=== PATIENT | female | born 1945 | race Caucasian/White ===

== ENCOUNTER 2016-10-10 21:49 | Inpatient (IN) | payer MEDICARE, OTHER ==
[~2016-10-10] VITALS: Ht 157.5 cm; Wt 72.6 kg
--- NOTE | 2016-10-10 20:20 | NUR ---
ACCEPTED A TRANSFER FEMALE PATIENT FROM [facility] TO ROOM 104 WITH DIAGNOSIS OF BRAIN DYSFUNCTION, ALTERED MENTAL LEVEL OF CONSCIOUSNESS, ENCEPHALOPATHY, ADMITTED TO ARU FOR INCREASING STRENGTH IN MOBILITY AND IMPROVED INDEPENDENCE IN ADLS. DAUGHTER AT BEDSIDE, TO ASSIST WITH INTERPRETING. PATIENT IS SPEAKING ONLY BRAZILIAN AND HAS NO UNDERSTANDING OF MAORI. PICTURES TAKEN OF SKIN ISSUES AT SACRUM AND LEFT ANTECUBITAL SITE WHERE AN IV WAS D/C'D TODAY AT [facility]. SACRUM CLEANED WELL. FOLLOWED BY HYDROGEL AND MEPILEX COVER.KEPT OFF BACK MUCH POSSIBLE. PATIENT IS CONFUSED AND ORIENTED TO NAME ONLY DAUGHTER STATES SHE DOESN'T NOT KNOW OR EVEN UNDERSTAND DIRECTIONS TO USING THE CALL LIGHT SYSTEM. DAUGHTER WILL BE STAYING OVER NIGHT TO HELP WITH INTERPRETATION AND SAFETY OF PATIENT. ORIENTED TO ARU ROUTINE,TV,PLAN OF CARE,AND MEDS TO BE GIVEN. CALL LIGHT WITHIN REACH AT ALL TIMES, PATIENT CARE ROUNDING TO BE DONE Q 1 HOUR AND PRN TO MAINTAIN SAFETY AND COMFORT
[2016-10-10] MEDS ORDERED: MAGNESIUM HYDROXIDE 30 ML LIQUID UDC PO PRN (23:15)
[2016-10-10] MEDS ORDERED: ACETAMINOPHEN 325 MG TABLET PO PRN (23:15)
[2016-10-10] MEDS ORDERED: MAG HYDROX/AL HYDROX/SIMETH 30 ML LIQUID UDC PO PRN (23:15)
[2016-10-10] MEDS ORDERED: Z GUARD REMEDY PASTE 57 GM TUBE TOP PRN (23:15)
[2016-10-11 00:05] VITALS: BP 134/65
--- NOTE | 2016-10-11 06:00 | NUR ---
SLEPT WELL TONIGHT. NO BEHAVIORAL ISSUES NOTED WITH DAUGHTER STAYING OVERNIGHT WITH PATIENT IN HELPING WITH INTERPRETATION.SKIN KEPT CLEAN AND DRY THROUGHPUT THE SHIFT.IN NAD OR C/O PAIN THIS SHIFT. REMAINS GUARDED WITH ALL TASKS TO BE DONE. REQUIRES THOROUGH EXPLAINATIONS PRIOR TO DOING ANY TASKS FOR HER TO BE LESS ANXIOUS, GUARDED, AND TO BE COMPLIANT.FREE FROM INJURY TONIGHT. MAINTAINED COMFORT. ALL NEEDS ADDRESSED AND MET. CALL LIGHT WITHIN REACH.
[2016-10-11] MEDS: PANTOPRAZOLE SODIUM 40 MG TABLET.DR PO SCH ×2 (07:00→07:19)
[2016-10-11] MEDS ORDERED: PANTOPRAZOLE SODIUM 40 MG TABLET.DR PO ONE (07:02)
[2016-10-11 08:00] VITALS: BP 121/55
[2016-10-11] MEDS ORDERED: ESCI20TA PO (09:29)
[2016-10-11] MEDS ORDERED: QUET25TA PO (09:31)
[2016-10-11] MEDS ORDERED: GEL100GE MC (09:37)
[2016-10-11] MEDS: ACETAMINOPHEN 325 MG TABLET PO PRN (11:05)
--- NOTE | 2016-10-11 12:37 | NUR ---
City Engineer: PAULETTE met with patient and pt's daughter at bedside to asses needs and provide support. Pt is only Arabic speaking. however pt's daughter provided collateral. Per daughter, the pt has a assisted living home director at home and a strong support system. PAULETTE was informed by RNPancho this morning that family requested POLST. PAULETTE followed up with pt's daughter who reported the pt has a completed POLST at home, and the hospital will be provided with it today. Per daughter, she has no concerns or needs at this time. She reported the pt will need HH upon discharge, PAULETTE will refer to [facility].
--- NOTE | 2016-10-11 19:40 | NUR ---
Received to care, patient resting in bed comfortably with her daughter at bedside. Patient is able to communicate needs. No pain or discomfort when asked. No signs of distress noted. Respirations unlabored. Call light within reach. Bed in lowest position with 2/4 siderails up for safety. Will continue to monitor
--- NOTE | 2016-10-11 20:06 | NUR ---
Some redness noted at left AC IV site post DC of her IV. Ice pack applied.Will follow up. No complaints of pain or discomfort. will continue to monitor
--- NOTE | 2016-10-11 20:30 | NUR ---
Both daughters in facility and at patient's bedside. Verbalized their concerns about patient being too far away from the nurses station because of patients confusion, not being able to speak any Bulgarian and not understanding how to use the call light as needed. Explained to the daughters that I have informed our casting house laborer regarding situation. Informed them that we have discharges coming up and once a room frees up by the nurses station on the south side we will be able to move their mother to another room. They both verbalized understanding. All needs attended to promptly. Call light within reach. Will continue to monitor.
[2016-10-11 20:45] VITALS: BP 106/52
[2016-10-11] MEDS: QUETIAPINE FUMARATE 25 MG TABLET PO SCH ×2 (21:00→21:31)
--- NOTE | 2016-10-11 21:35 | NUR ---
Scheduled dose of Seroquel 25mg refused. Patients daughters also state that she is not to take Seroquel per patients Primary Doctors instruction. (Dr. Spivey). Patients daughters name is Marielle ([phone]). Will continue to monitor
--- NOTE | 2016-10-11 23:20 | NUR ---
Patient's daughter in facility and verbalized that she wanted to stay the night and that she had stayed the night previously because her mom does not understand and speak Yoruba. Explained to daughter that she must sign the hospital visitor extended stay agreement form. Verbalized understanding and signed form. Informed Rotor Coil Taper, Brie of daughters stay. Per Brie will needed MD order as well. Will inform MD and get order. All needs attended to promptly. Call light within reach. Will continue to monitor.
[2016-10-12 06:45] LABS: BASOPHILS % (AUTO) 0.5 % (0.0-2.0); EOSINOPHILS # (AUTO) 0.1 K/uL (0.0-0.7); HEMATOCRIT 30.9 % (37-47); HEMOGLOBIN 10.1 G/DL (12.0-16.0); LYMPHOCYTES # (AUTO) 1.7 K/UL (0.8-4.8); LYMPHOCYTES % (AUTO) 26.4 % (20.5-51.5); MEAN CORPUSCULAR HEMOGLOBIN 25.8 UUG (27.0-31.0); MEAN CORPUSCULAR HGB CONC 33 g/dL (32.0-37.0); MEAN CORPUSCULAR VOLUME 79.1 FL (81.0-99.0); MONOCYTES # (AUTO) 0.5 K/UL (0.1-1.30); MONOCYTES % (AUTO) 7.5 % (0.0-11.0); NEUTROPHILS # (AUTO) 4.2 K/UL (1.8-8.9); NEUTROPHILS % (AUTO) 63.6 % (38.5-71.5); PLATELET COUNT (AUTO) 274 K/UL (150-450); WHITE BLOOD COUNT (AUTO) 6.6 K/UL (4.0-11.2)
--- NOTE | 2016-10-12 06:49 | NUR ---
Dr. Angeles made aware of daughter wanting to spend the night. Received orders for daughter to spend the night. New orders noted and carried out.
[2016-10-12] MEDS: PANTOPRAZOLE SODIUM 40 MG TABLET.DR PO SCH (07:00)
[2016-10-12 07:19] LABS: THYROID STIMULATING HORMONE 1.258 mIU/mL (0.358-3.740)
[2016-10-12 07:40] LABS: BILIRUBIN,TOTAL 0.3 mg/dL (0.2-1.0); CREATININE 0.7 mg/dL (0.6-1.3); MAGNESIUM 1.7 mg/dL (1.8-2.4); PHOSPHOROUS 4.1 mg/dL (2.5-4.9); POTASSIUM 3.5 mmol/L (3.5-5.1); TOTAL PROTEIN, SERUM 6.5 g/dL (6.4-8.2)
[2016-10-12 08:00] VITALS: BP 129/61
[2016-10-12] MEDS: ESCITALOPRAM OXALATE 10 MG TABLET PO SCH (09:00)
[2016-10-12] MEDS ORDERED: Medication Not On Formulary EA (Escitalopram Oxalate (Lexapro) 1 TAB) PO SCH (09:00)
[2016-10-12] MEDS ORDERED: MAGNESIUM SULFATE/D5W 100 ML IV SCH (15:15)
--- NOTE | 2016-10-12 18:22 | NUR ---
DAILY NURSING NOTE ENCOURAGE PT AND DAUGHTER AT BEDSIDE TO INCREASE FLUIDS. DRANK 200ML THIS SHIFT AND NO BM FOR 2 DAYS. NEEDS MORE ENCOURAGEMENT
[2016-10-12 20:31] VITALS: BP 100/59
[2016-10-12] MEDS: QUETIAPINE FUMARATE 25 MG TABLET PO SCH (20:36)
[2016-10-13] MEDS: PANTOPRAZOLE SODIUM 40 MG TABLET.DR PO SCH (07:00)
--- NOTE | 2016-10-13 07:32 | NUR ---
Protonix not given. Patient refused
[2016-10-13 08:00] VITALS: BP 103/62
[2016-10-13] MEDS: ESCITALOPRAM OXALATE 10 MG TABLET PO SCH (09:00)
[2016-10-13] MEDS: ACETAMINOPHEN 325 MG TABLET PO PRN ×2 (10:56→20:22)
--- NOTE | 2016-10-13 20:27 | NUR ---
PRN Tylenol given for pain. will continue to monitor
[2016-10-13 20:36] VITALS: BP 138/73
[2016-10-13] MEDS: QUETIAPINE FUMARATE 25 MG TABLET PO SCH (21:00)
[2016-10-14] MEDS: PANTOPRAZOLE SODIUM 40 MG TABLET.DR PO SCH (06:37)
--- NOTE | 2016-10-14 06:39 | NUR ---
Patient refused Protonix
--- NOTE | 2016-10-14 08:00 | NUR ---
Received patient awake, up in wheelchair, verbally responsive, not in any form of acute distress. She denies any pain or discomfort at this time. Daughter Nya at bedside. Environmental check for safety done. Call light placed within reach.
[2016-10-14] MEDS: ESCITALOPRAM OXALATE 10 MG TABLET PO SCH (09:00)
--- NOTE | 2016-10-14 09:00 | NUR ---
Lexapro not at ministered, daughter at bedside refused. Explained risk and benefits to daughter and patient but daughter still refused.
[2016-10-14] MEDS: ACETAMINOPHEN 325 MG TABLET PO PRN (14:05)
[2016-10-14] MEDS: QUETIAPINE FUMARATE 25 MG TABLET PO SCH (20:49)
--- NOTE | 2016-10-14 20:50 | NUR ---
Patient refused Seroquel. Will continue to monitor
[2016-10-14 20:54] VITALS: BP 115/63
[2016-10-15] MEDS: PANTOPRAZOLE SODIUM 40 MG TABLET.DR PO SCH (07:00)
[2016-10-15] MEDS: ACETAMINOPHEN 325 MG TABLET PO PRN (07:39)
[2016-10-15] MEDS: ESCITALOPRAM OXALATE 10 MG TABLET PO SCH (07:40)
[2016-10-15] MEDS: QUETIAPINE FUMARATE 25 MG TABLET PO SCH (07:41)
--- NOTE | 2016-10-15 09:30 | NUR ---
Discussed code status clarification with Daughter states that pt does not want any intubation and ok with CPR notified Dr Vila - new order for code status for DNI. Dr Vila saw -daughter c/o pt very sleepy pt new orders received to dc meds that pt has been refusing lexapro, seroquel, and protonix.
--- NOTE | 2016-10-15 19:30 | NUR ---
RECEIVED PATIENT AWAKE, ALERT AND ORIENTED X1 TO NAME ONLY. REORIENTED WITH HELP OF DAUGHTER FOR INTERPRETATION. IN NAD AT PRESENT. NO C/O H/A OR OTHER PAINS. INCONTINENT OF URINE IN DIAPERS. KEPT CLEAN AND DRY.MEPILEX INTACT TO SACRUM, CLEAN AND DR.CALL LIGHT WITHIN REACH AND BED ALARM ON AAT. DAUGHTER WILL BE STAYING OVERNIGHT TONIGHT.CRUSH MEDS AND GIVE IN APPLE SAUCE.
[2016-10-15 20:10] VITALS: BP 136/70
[2016-10-15] MEDS: MAGNESIUM OXIDE 400 MG TABLET PO SCH (20:34)
[2016-10-16 08:00] VITALS: BP 128/74
[2016-10-16] MEDS: CHOLECALCIFEROL 1,000 UNIT TABLET PO SCH (08:32)
[2016-10-16] MEDS: FERROUS SULFATE 325 MG TABEC PO SCH (08:32)
[2016-10-16] MEDS: ACETAMINOPHEN 325 MG TABLET PO PRN (08:58)
--- NOTE | 2016-10-16 09:05 | NUR ---
PATIENT COMPLAINED OF PAIN VERBALIZED BY DAUGHTER. PRN PAIN MEDICATIONS GIVEN. SHADI-CARE AND AM CARE DONE. TOLERATED BREAKFAST WELL.
--- NOTE | 2016-10-16 10:00 | NUR ---
PATIENT TOLERATED DIET WELL. OFFERED PATIENT TO BE TRANSFERRED PRIVATE ROOM BUT REFUSED. PATIENT IS CONFUSED BUT MAKES NEEDS KNOWN TO DAUGHTER. NO S/S OF DISTRESS. ENSURED SAFETY
--- NOTE | 2016-10-16 13:03 | NUR ---
RECEIVED PATIENT ASLEEP IN BED. WITH DAUGHTER AT BEDSIDE. NO S/S OF DISTRESS. CALL LIGHT WITHIN REACH.
--- NOTE | 2016-10-16 14:26 | NUR ---
WOUND CARE CONSULT: PT PRESENTS WITH STAGE II ULCER TO SACRAL AREA, PRESENT ON ADMISSION. PT IS INCONTINENT. FIRST STEP MATTRESS TO BE PLACED. PT TO BE TURNED AND REPOSITIONED EVERY 2 HRS PT CONDITION PERMITS, HEELS FLOATED. SKIN TO BE KEPT CLEAN AND DRY. ALL SKIN PROTECTION AND WOUND RECOMMENDATIONS DISCUSSED WITH NURSING STAFF. WILL SEE PRN. WILLIAMSON IN AGREEMENT WITH PLAN OF CARE. Addendum: 10/16/16 at 1428 by LES LUNDY RN Amended: Links added.
--- NOTE | 2016-10-16 15:20 | NUR ---
PATIENT LETHARGIC, DOES NOT OBEY COMMANDS. V/S FOLLOWS: T- 99.1, KY-104, SPO2-97, BP-116/64, RR- 20. INFORMED DR. SEWELL. PLAIN HEAD CT SCAN ORDERED. INFORMED CRISTINA TIRADO. CBC, BMP AND CHEST XRAY ORDERED.
[2016-10-16 15:32] VITALS: BP 116/64
[2016-10-16 16:24] LABS: BASOPHILS # (AUTO) 0.1 K/uL (0.0-8.0); EOSINOPHILS # (AUTO) 0.1 K/uL (0.0-0.7); EOSINOPHILS % (AUTO) 1.1 % (0.0-7.0); HEMATOCRIT 37.2 % (37-47); HEMOGLOBIN 12.1 G/DL (12.0-16.0); LYMPHOCYTES # (AUTO) 2.3 K/UL (0.8-4.8); MEAN CORPUSCULAR HEMOGLOBIN 25.6 UUG (27.0-31.0); MEAN CORPUSCULAR HGB CONC 33 g/dL (32.0-37.0); MEAN CORPUSCULAR VOLUME 78.6 FL (81.0-99.0); MONOCYTES # (AUTO) 0.9 K/UL (0.1-1.30); MONOCYTES % (AUTO) 11.3 % (0.0-11.0); NEUTROPHILS # (AUTO) 4.4 K/UL (1.8-8.9); NEUTROPHILS % (AUTO) 57.6 % (38.5-71.5); PLATELET COUNT (AUTO) 413 K/UL (150-450); RED BLOOD CELL COUNT(AUTO) 4.74 MIL/UL (4.2-5.4); WHITE BLOOD COUNT (AUTO) 7.8 K/UL (4.0-11.2)
[2016-10-16 16:34] LABS: CREATININE 0.7 mg/dL (0.6-1.3)
--- NOTE | 2016-10-16 17:26 | NUR ---
Patient noted with lethargy. Patient was seen by ACID PURIFIER. ACID PURIFIER with new orders and was carried out by assigned RN - Gabriele. Neuro MD was informed by RN. Offered room change so patient can be closer to Nurse's station for better close monitoring, explained benefits of being closer to Nurse's station with Director-Karina to patient's 2 daughters John and Marielle but both daughters insisted of staying in the current room due to larger space.
--- NOTE | 2016-10-16 19:30 | NUR ---
Report received from [facility].
[2016-10-16 20:00] VITALS: BP 106/55
[2016-10-16] MEDS: MAGNESIUM OXIDE 400 MG TABLET PO SCH (21:55)
--- NOTE | 2016-10-16 22:00 | NUR ---
Seen patient and performed head to toe assessment. Due meds given. Turned and repositioned, continue on skin care protocol, applied z-guard at sacral area,Applied 1st step mattress, did straight cath using aseptic technique, send urine for culture and urinalysis.Meds crushed pill w/ apple sauce.Denies any pain as interpreted by pt's daughter.Pt remained alert but sleeps a lot however easily arousable.
[2016-10-16 22:44] LABS: *BILIRUBIN,URIN NEGATIVE (NEGATIVE); *BLOOD, URINE Trace-intact (NEGATIVE); *CLARITY,URINE CLOUDY (CLEAR); *COLOR,URINE CLOUDY (YELLOW); *KETONES,URINE NEGATIVE (NEGATIVE); *PROTEIN,URINE TRACE (NEGATIVE); *UROBILINOGEN,URINE 0.2 E.U./dl (NORMAL); LEUKOCYTE ESTERASE ,URINE 3+ (NEGATIVE); PH,URINE 6.5 (5.0-8.0); UGLUCOSE NEGATIVE (NEGATIVE)
[2016-10-16 22:50] LABS: NITRITE, URINE POSITIVE (NEGATIVE)
[2016-10-16 22:53] LABS: BACTERIA,URINE MANY /HPF (NONE SEEN); RBC,URINE 0-3 /HPF (0-3); SQUAMOUS EPITHELIAL CELL,UR FEW /HPF (NONE SEEN); WBC,URINE TNTC /HPF (0-3)
--- NOTE | 2016-10-17 07:30 | NUR ---
Report to [facility]. bedbath rendered earlier, changed diaper, made it comfortable. Left AC took a picture , less reddened.No significant distress noted.
[2016-10-17 08:00] VITALS: BP 100/57
--- NOTE | 2016-10-17 08:00 | NUR ---
RECEIVED PATIENT ASLEEP IN BED. WITH DAUGHTER AT BEDSIDE. CALL LIGHT WITHIN REACH NO S/S OF DISTRESS. WILL CONTINUE TO MONITOR.
[2016-10-17] MEDS: CHOLECALCIFEROL 1,000 UNIT TABLET PO SCH (08:50)
[2016-10-17] MEDS: FERROUS SULFATE 325 MG TABEC PO SCH (08:50)
--- NOTE | 2016-10-17 09:30 | NUR ---
PATIENT URINALYSIS RESULT OF WBC-TNTC, NITRATE- POSITIVE, LEUKOCYTE-3+, BACTERIA-MANY REPORTED TO CHRISTOPHER/DRAMATIC ART TEACHER. DRAMATIC ART TEACHER WILL CHECK RESULTS AND GET BACK TO US FOR ANTIBIOTICS VERBALIZED.
[2016-10-17] MEDS: ACETAMINOPHEN 325 MG TABLET PO PRN (11:35)
--- NOTE | 2016-10-17 13:00 | NUR ---
IV G 22 STARTED OVER LEFT WRIST FOR ANTIBIOTIC INFUSION.
[2016-10-17] MEDS: CEFTRIAXONE 1 G in IV DEXTROSE 5% 50 ML IV SCH (14:18)
--- NOTE | 2016-10-17 15:15 | NUR ---
IDT MEETING 10/17/16
[2016-10-17 15:36] LABS: BASOPHILS % (AUTO) 0.5 % (0.0-2.0); EOSINOPHILS # (AUTO) 0.1 K/uL (0.0-0.7); EOSINOPHILS % (AUTO) 1.5 % (0.0-7.0); HEMATOCRIT 35.7 % (37-47); HEMOGLOBIN 11.6 G/DL (12.0-16.0); LYMPHOCYTES # (AUTO) 2.3 K/UL (0.8-4.8); LYMPHOCYTES % (AUTO) 27.8 % (20.5-51.5); MEAN CORPUSCULAR HEMOGLOBIN 25.5 UUG (27.0-31.0); MEAN CORPUSCULAR HGB CONC 32 g/dL (32.0-37.0); MEAN CORPUSCULAR VOLUME 78.8 FL (81.0-99.0); MONOCYTES # (AUTO) 0.7 K/UL (0.1-1.30); MONOCYTES % (AUTO) 8.3 % (0.0-11.0); NEUTROPHILS # (AUTO) 5.2 K/UL (1.8-8.9); NEUTROPHILS % (AUTO) 61.9 % (38.5-71.5); PLATELET COUNT (AUTO) 391 K/UL (150-450); RED BLOOD CELL COUNT(AUTO) 4.53 MIL/UL (4.2-5.4); WHITE BLOOD COUNT (AUTO) 8.3 K/UL (4.0-11.2)
[2016-10-17 15:39] LABS: CREATININE 0.9 mg/dL (0.6-1.3); POTASSIUM 4.2 mmol/L (3.5-5.1)
--- NOTE | 2016-10-17 19:30 | NUR ---
RECEIVED PATIENT SLEEPING LIGHTLY IN NAD. IV SALINE LOCK LEFT HAND PATENT AND WITHOUT SIGNS OF INFILTRATION OR PHLEBITIS.NO C/O HEADACHE AT THIS TIME. PM CARE DONE AND REPOSITIONED COMFORTABLY FOR SLEEP.DAUGHTER AT BEDSIDE FOR THE NIGHT.CALL LIGHT WITHIN REACH AAT
[2016-10-17 19:54] VITALS: BP 112/61
[2016-10-17] MEDS: MAGNESIUM OXIDE 400 MG TABLET PO SCH (21:20)
[2016-10-18 08:00] VITALS: BP 103/49
[2016-10-18] MEDS: FERROUS SULFATE 325 MG TABEC PO SCH (10:41)
[2016-10-18] MEDS: CHOLECALCIFEROL 1,000 UNIT TABLET PO SCH (10:41)
[2016-10-18] MEDS: CEFTRIAXONE 1 G in IV DEXTROSE 5% 50 ML IV SCH (15:05)
[2016-10-18 20:32] VITALS: BP 110/62
[2016-10-18] MEDS: MAGNESIUM OXIDE 400 MG TABLET PO SCH (20:44)
[2016-10-19 08:00] VITALS: BP 98/53
[2016-10-19] MEDS: CHOLECALCIFEROL 1,000 UNIT TABLET PO SCH (09:44)
[2016-10-19] MEDS: FERROUS SULFATE 325 MG TABEC PO SCH (09:44)
--- NOTE | 2016-10-19 13:00 | NUR ---
Patient lying on the bed. spoke with the daughter, daughter wants the antibiotics IV med to be reschedule at the later time. daughter stated she wants the patient to sleep at this moment and putting an IV medication will make her agitated. Health teaching done. daughter still want to hold the abx administration for 1330 at the later time. HAND STONECUTTER Cuco notified, verbalized ok as per family request.
[2016-10-19 16:24] VITALS: BP 103/60
[2016-10-19] MEDS: CEFTRIAXONE 1 G in IV DEXTROSE 5% 50 ML IV SCH (17:59)
--- NOTE | 2016-10-19 20:00 | NUR ---
Patient received in bed resting comfortably. Pt observed to be withdrawn, confused/disoriented. Pt daughter at bedside. no physical discomfort noted. Noted mepilex dressing to sacral area. vital signs wnl. No acute distress noted. Bed in low and locked position, call light within reach.
[2016-10-19 21:10] VITALS: BP 104/46
[2016-10-19] MEDS: MAGNESIUM OXIDE 400 MG TABLET PO SCH (21:38)
--- NOTE | 2016-10-20 07:27 | NUR ---
Pt remains asleep, breathing unlabored. Change of diaper and repositioning offered to daughter, per daughter for staff to wait until patient awakens. No acute distress noted. Safety measures provided.
[2016-10-20 08:00] VITALS: BP 100/57
[2016-10-20] MEDS: CHOLECALCIFEROL 1,000 UNIT TABLET PO SCH (09:37)
[2016-10-20] MEDS: FERROUS SULFATE 300 MG/5 ML LIQUID UDC PO SCH (09:37)
[2016-10-20 11:55] LABS: BILIRUBIN,TOTAL 0.5 mg/dL (0.2-1.0); CREATININE 0.8 mg/dL (0.6-1.3); POTASSIUM 3.9 mmol/L (3.5-5.1); TOTAL PROTEIN, SERUM 7.3 g/dL (6.4-8.2)
[2016-10-20] MEDS: CEFTRIAXONE 1 G in IV DEXTROSE 5% 50 ML IV SCH (16:23)
[2016-10-20 18:12] VITALS: BP 92/42
--- NOTE | 2016-10-20 20:00 | NUR ---
PT ALERT IN CHAIR. NO DISTRESS NOTED. DAUGHTER WITH PT. CLEAN AND DRY. DRESSING CHANGED ORDERED. SAFETY MAINTAINED. CALL LIGHT WITHIN REACH. WILL CONTINUE TO MONITOR.
[2016-10-20 20:39] VITALS: BP 104/60
[2016-10-20] MEDS: MAGNESIUM OXIDE 400 MG TABLET PO SCH (20:58)
--- NOTE | 2016-10-21 07:09 | NUR ---
PT RESTING IN BED. NO DISTRESS NOTED. LAB CAME TO DRAW BLOOD, FAMILY SAID TO COME BACK LATER WHEN SHE WAKES UP. WILL ENDORSE TO DAYSHIFT TO CALL LAB WHEN READY FOR BLOOD TO BE DRAWN. FAMILY WANTS TO WAIT FOR PT TO WAKE UP TO BE CHANGED, WILL ENDORSE TO DAYSHIFT PT NEEDS TO BE CHANGED. SAFETY MAINTAINED. CALL LIGHT WITHIN REACH.
[2016-10-21 08:00] VITALS: BP 116/59
[2016-10-21 08:55] LABS: CREATININE 0.7 mg/dL (0.6-1.3); POTASSIUM 3.8 mmol/L (3.5-5.1)
[2016-10-21] MEDS: CHOLECALCIFEROL 1,000 UNIT TABLET PO SCH (09:13)
[2016-10-21] MEDS: FERROUS SULFATE 300 MG/5 ML LIQUID UDC PO SCH (09:13)
--- NOTE | 2016-10-21 09:30 | NUR ---
PATIENT AWAKE SITTING IN CHAIR HAVING BREAKFAST WITH DAUGHTERS. TOLERATED BREAKFAST AND MEDICATIONS WELL. AWAKE AND ALERT. NO COMPLAINTS OF PAIN. NO S/S OF DISTRESS
--- NOTE | 2016-10-21 13:10 | NUR ---
PATIENT TOLERATED THERAPY WELL. WAS ABLE TO AMBULATE WITH ASSISTANCE. ENCOURAGED DAUGHTERS TO VERBALIZE NEEDS. ENSURED SAFETY. CALL LIGHT WITHIN REACH
[2016-10-21] MEDS: CEFTRIAXONE 1 G in IV DEXTROSE 5% 50 ML IV SCH (18:58)
--- NOTE | 2016-10-21 19:30 | NUR ---
Received patient sitting on bed with no s/s of distress. Verbalized absence of pain at this time. Daughters at bedside. Call light within reach. Will continue to monitor.
[2016-10-21 20:00] VITALS: BP 115/63
[2016-10-21] MEDS: MAGNESIUM OXIDE 400 MG TABLET PO SCH (21:11)
--- NOTE | 2016-10-22 06:25 | NUR ---
Patient went back to sleep immediately after incontinence care. No complaints of pain at this time. Respirations even and unlabored. Dressing on sacrum changed. Kept clean and dry. Call light kept within reach. Due meds given. Needs attended. Daughter at bedside. Requested for hospital breakfast alone, lunch and dinner to be provided by family. Frequent checks done. Slept well throughout the night. Endorsed accordingly.
[2016-10-22 08:00] VITALS: BP 104/54
--- NOTE | 2016-10-22 08:00 | NUR ---
RECEIVED PATIENT ASLEEP IN BED. DAUGHTER AT BEDSIDE. CALL LIGHT WITHIN REACH. WILL CONTINUE TO MONITOR
[2016-10-22] MEDS: CHOLECALCIFEROL 1,000 UNIT TABLET PO SCH (09:23)
[2016-10-22] MEDS: FERROUS SULFATE 300 MG/5 ML LIQUID UDC PO SCH (09:23)
[2016-10-22] MEDS ORDERED: BISACODYL 5 MG TABLET.DR PO PRN (10:00)
--- NOTE | 2016-10-22 11:10 | NUR ---
PATIENT TOLERATED BREAKFAST WELL. MORNING CARE DONE. TOLERATED THERAPY. NO S/S OF DISTRESS. NO COMPLAINTS OF PAIN AT THIS TIME.
--- NOTE | 2016-10-22 11:14 | NUR ---
DAUGHTER REQUESTING FOR ENEMA. PATIENT HAD BOWEL MOVEMENT YESTERDAY BUT VERY SCANT. INFORMED DR. COLLINS, DULCOLAX 2 TABLETS PRN ORDERED.
[2016-10-22] MEDS: CEFTRIAXONE 1 G in IV DEXTROSE 5% 50 ML IV SCH (17:29)
--- NOTE | 2016-10-22 19:12 | NUR ---
Pt remains in bed, no distress noted. Family at bedside, pt daughter was requesting stool softener, med was pulled out but when med was ready to be administered pt was sleeping. Daughters said she will notify nurse when pt wakes up.
--- NOTE | 2016-10-22 19:30 | NUR ---
Received patient resting in bed with no s/s of distress. No complaints of pain at this time. Daughters at bedside. Call light within reach. Will continue to monitor.
[2016-10-22] MEDS: BISACODYL 10 MG SUPP.RECT RC ONE ×2 (21:15→22:23)
[2016-10-22] MEDS: MAGNESIUM OXIDE 400 MG TABLET PO SCH (21:25)
[2016-10-22 21:40] VITALS: BP 111/52
--- NOTE | 2016-10-23 07:49 | NUR ---
Patient's daughter requested to hold Dr. Angeles's order for Dulcolax suppository last night and wait for patient to have a BM naturally. Patient had BM x 1 during the shift. Assisted during shower around 2230, per patient's request. Kept clean and comfortable. Needs attended. Due meds given. Daughter at bedside. Frequent checks done to ensure safety. Endorsed accordingly.
[2016-10-23 08:00] VITALS: BP 112/53
[2016-10-23] MEDS: SULFAMETH/TRIMETH 800/160 MG TABLET PO SCH ×2 (09:27→21:38)
[2016-10-23] MEDS: FERROUS SULFATE 300 MG/5 ML LIQUID UDC PO SCH (09:27)
[2016-10-23] MEDS: CHOLECALCIFEROL 1,000 UNIT TABLET PO SCH (09:28)
--- NOTE | 2016-10-23 10:13 | NUR ---
pt refused bp med. bp 105/53. pt showed no symptoms. medications given. pt had RT for breathing treatment after smoking 1 cigarette. pt. had an episode of vomiting. vitals taken. bp 120/63. notified md. recommended hilary. will wait for doctors approval.
--- NOTE | 2016-10-23 17:50 | NUR ---
PT FAMILY UPSET THAT THEY DIDNT GET THERAPY. TALKED TO BILLY. FAMILY UNDERSTOOD ROUTINE. PT WAS GIVEN MAG AL FOR STOMACH UPSET. NO DISTRESS DURING SHIFT. PT WALKED WITH FAMILY ABOUT 700 FEET WITH ASSIST. NO SOB NOTED. WILL CONTINUE TO MONITOR ORDERED.
[2016-10-23] MEDS ORDERED: BISACODYL 10 MG SUPP.RECT RC PRN (19:30)
[2016-10-23] MEDS ORDERED: SENNOSIDES 1 TABLET PO PRN (19:30)
--- NOTE | 2016-10-23 19:30 | NUR ---
RECEIVED PATIENT AWAKE AND ALERT WITHOUT C/O PAIN OR HEADACHE. PM CARE GIVEN. KEPT CLEAN AND DRY WITH DIAPERS ON.ALL MEDS TO BE CRUSHED AND GIVEN WITH APPLE SAUCE OR PATIENT WILL SPIT OUT THE PILLS.VSS. BACTROBAN PO WILL BE STARTED TONIGHT. IV SALINE LOCK WILL NOT FLUSH WITH NORMAL SALINE. CLOTTED. SALINE LOCK D/C'D INTACT WITHOUT INCIDENT. CLEANED NEEDLE SITE WITH ALCOHOL SWAB AND NORMAL SALINE. BANDAIDE APPLIED. SITE IS CLEAR. CALL LIGHT WITHIN REACH AAT. ON SPECIALTY BED. REFUSING TO WEAR SCD'S AT THIS TIME.DISCUSSED IMPORTANCE OF WEARING THEM TO PREVENT CLOTS, TO FAMILY. VERBALIZES UNDERSTANDING, BUT STILL REFUSES TO WEAR. APPEARS COMFORTABLE AT THIS TIME IN nad. MAINTAINED SAFETY AND COMFORT
[2016-10-23 21:15] VITALS: BP 96/54
[2016-10-23] MEDS: DOCUSATE SODIUM 100 MG CAPSULE PO SCH (21:38)
[2016-10-23] MEDS: MAGNESIUM OXIDE 400 MG TABLET PO SCH (21:38)
--- NOTE | 2016-10-24 06:00 | NUR ---
SLEPT WELL LAST NIGHT. REPOSITIONED PRN ON SPECIALTY BED.KEPT CLEAN AND DRY. VITALS ARE STABLE. AFEBRILE. STARTED ON PO BACTRIM LAST NIGHT WITHOUT SIGNS OF ANY ADVERSE REACTIONS. DAUGHTER STATES PATIENT MAY BE GOING HOME ON SATURDAY. CALL LIGHT WITHIN REACH AAT. APPEARS IN NAD AT THIS TIME. RESTING COMFORTABLY
[2016-10-24] MEDS: FERROUS SULFATE 300 MG/5 ML LIQUID UDC PO SCH (09:17)
[2016-10-24] MEDS: SULFAMETH/TRIMETH 800/160 MG TABLET PO SCH ×2 (09:17→21:00)
[2016-10-24] MEDS: CHOLECALCIFEROL 1,000 UNIT TABLET PO SCH (09:17)
--- NOTE | 2016-10-24 17:09 | NUR ---
IDT MEETING 10/24/16
[2016-10-24] MEDS: DOCUSATE SODIUM 100 MG CAPSULE PO SCH (21:00)
[2016-10-24] MEDS: MAGNESIUM OXIDE 400 MG TABLET PO SCH (21:33)
--- NOTE | 2016-10-24 21:35 | NUR ---
Patient's family at bedside, they refused the administration of bactrim and colace for tonight. Daughter claims that the patient already had 7 days of IV ATB and doesn't need the oral ATB. Explained the importance of the medication and she still refused.
[2016-10-24 22:18] VITALS: BP 116/61
--- NOTE | 2016-10-25 06:25 | NUR ---
Patient slept well throughout the night. Showed no signs of pain or discomfort. No signs of respiratory distress noted. Daughter at bedside all night. Call light within reach, all needs attended to.
--- NOTE | 2016-10-25 08:04 | NUR ---
RECEIVED PATIENT ASLEEP. WITH DAUGHTER AT BEDSIDE. NO S/S OF DISTRESS. FOR DISCHARGE TODAY.
[2016-10-25] MEDS: SULFAMETH/TRIMETH 800/160 MG TABLET PO SCH (09:00)
[2016-10-25] MEDS: FERROUS SULFATE 300 MG/5 ML LIQUID UDC PO SCH (09:41)
[2016-10-25] MEDS: CHOLECALCIFEROL 1,000 UNIT TABLET PO SCH (09:41)
--- NOTE | 2016-10-25 11:07 | NUR ---
PATIENT AWAKE. NO COMPLAINTS OF PAIN OR DISCOMFORT. WITH DAUGHTERS AT BEDSIDE. ATE BREAKFAST AND TOLERATED BREAKFAST WELL.
--- NOTE | 2016-10-25 15:55 | NUR ---
PATIENT DISCHARGED. WENT HOME WITH DAUGHTER PER WHEELCHAIR. DAUGHTER REFUSED VACCINATIONS. INSTRUCTED PATIENT'S DAUGHTER ABOUT HOME MEDICATIONS. INSTRUCTED PATIENT'S DAUGHTER TO FOLLOW UP WITH PRIMARY PHYSICIAN. PATIENT STABLE, AWAKE ORIENTED X2. NO S/S OF DISTRESS NO COMPLAINTS OF PAIN OR DISCOMFORT
== END 2016-10-25 15:53 | disposition home health service (06) | DRG 70 ==
PROVIDERS: ADMIT Physical Medicine & Rehabilitation Pain Medicine; ATTEND Physical Medicine & Rehabilitation Pain Medicine
DX: G93.40 Encephalopathy, unspecified (principal); R53.2 Functional quadriplegia; E44.0 Moderate protein-calorie malnutrition; G91.2 (Idiopathic) normal pressure hydrocephalus; D68.59 Other primary thrombophilia; N39.0 Urinary tract infection, site not specified; G32.81 Cerebellar ataxia in diseases classified elsewhere; E55.9 Vitamin D deficiency, unspecified; E11.9 Type 2 diabetes mellitus without complications; G30.9 Alzheimer's disease, unspecified; F02.80 Dementia in other diseases classified elsewhere, unspecified severity, without behavioral disturbance, psychotic disturbance, mood disturbance, and anxiety; R53.1 Weakness; R26.9 Unspecified abnormalities of gait and mobility; R73.03 Prediabetes; Z82.49 Family history of ischemic heart disease and other diseases of the circulatory system; Z83.3 Family history of diabetes mellitus; K59.00 Constipation, unspecified; M54.5 Low back pain; Z91.81 History of falling; F07.81 Postconcussional syndrome; Z68.29 Body mass index [BMI] 29.0-29.9, adult; E83.42 Hypomagnesemia; E88.09 Other disorders of plasma-protein metabolism, not elsewhere classified; E86.0 Dehydration; D63.8 Anemia in other chronic diseases classified elsewhere; F03.90 Unspecified dementia, unspecified severity, without behavioral disturbance, psychotic disturbance, mood disturbance, and anxiety; B96.20 Unspecified Escherichia coli [E. coli] as the cause of diseases classified elsewhere; Z74.01 Bed confinement status; I51.7 Cardiomegaly; Z96.649 Presence of unspecified artificial hip joint; G93.89 Other specified disorders of brain; I67.2 Cerebral atherosclerosis; F41.9 Anxiety disorder, unspecified; R27.0 Ataxia, unspecified
CPT/HCPCS: 36415; 70030-TC; 70450; 71010; 72110; 82306; 83550; 83735; 84100; 84443; 85025; 87077; 87086; 92523; 92526; 92610; 97110; 97112; 97116; 97161; 97530; 97535; C1758; J0696; J3475; J7030; J7060